=== PATIENT | male | born 1975 | race African-American/Black ===

== ENCOUNTER 2017-03-09 13:23 | Emergency (ER) | payer OTHER ==
[~2017-03-09 13:23] MED LIST: HCTZ25 MG PO; JANUVIA50 MG PO; METFORMIN XR PO; PRINIVIL20 MG PO
[2017-03-09 15:23] LABS: BASOPHIL 0.4 % (0-2); EOSINOPHIL 0.1 % (0-5); HCT 42.6 % (42.0-52.0); LYMPHOCYTE 40.5 % (15-48); MCH 26.4 pg (25.0-31.0); MCHC 35.2 g/dL (32.0-36.0); MONOCYTE 9.4 % (0-12); MPV 9.8 fL (6.0-9.5); NEUTROPHIL 49.6 % (41-80); PLT 294 K/uL (150-400); RBC 5.68 M/uL (4.70-6.00); RDW 14.9 % (11.5-14.0); WBC 7.9 K/uL (4.0-10.5)
[2017-03-09 15:23] LABS: BILIRUBIN NEGATIVE (NEGATIVE); BLOOD NEGATIVE Ery/uL (NEGATIVE); CLARITY CLEAR (CLEAR); COLOR YELLOW (YELLOW); GLUCOSE (U) 2+ mg/dL (NORMAL); KETONE (U) NEGATIVE (NEGATIVE); LEUKOCYTES NEGATIVE Leu/uL (NEGATIVE); NITRITE NEGATIVE (NEGATIVE); PROTEIN NEGATIVE (NEGATIVE); SPECIFIC GRAVITY <=1.005 (1.001-1.030); UROBILINOGEN 0.2 mg/dL (0.2-1.0); pH 6.5 (5.0-9.0)
[2017-03-09 15:37] LABS: ALBUMIN 4.7 g/dL (3.5-5.0); BILIRUBIN - TOTAL 0.8 mg/dL (0.1-1.0); GLOBULIN (CALCULATION) 2.5 g/dL (2.2-4.2); POTASSIUM 3.7 mmol/L (3.5-5.1); TOTAL PROTEIN 7.2 g/dL (6.4-8.3)
== END 2017-03-09 16:59 | disposition home or self-care (01) ==
LOC: FER 13:23
PROVIDERS: Emergency Medicine
DX: S39.012A Strain of muscle, fascia and tendon of lower back, initial encounter (principal); E11.9 Type 2 diabetes mellitus without complications; Z85.528 Personal history of other malignant neoplasm of kidney; Z79.84 Long term (current) use of oral hypoglycemic drugs; Z98.890 Other specified postprocedural states
CPT/HCPCS: 36415; 80053; 81003; 85025; J1100; J1885